=== PATIENT | female | born 1985 | race Caucasian/White ===

== ENCOUNTER 2018-03-17 01:23 | Emergency (ER) | payer MEDICAID ==
[~2018-03-17] VITALS: Ht 144.8 cm; Wt 76.0 kg
[~2018-03-17 01:23] MED LIST: ALBU18HF; BECL8.7A7
[2018-03-17] MEDS ORDERED: IBUPROFEN 800 MG TABLET PO STA (01:55)
[2018-03-17] MEDS ORDERED: SODIUM CHLORIDE FLUSH 10ML SYR IVF ONE (02:00)
[2018-03-17] MEDS ORDERED: ONDANSETRON 2MG/ML, 2ML IVPush ONE (02:00)
[2018-03-17] MEDS ORDERED: ACETAMINOPHEN 500 MG TABLET PO ONE (02:00)
[2018-03-17] MEDS ORDERED: SODIUM CHLORIDE 0.9% 1,000ML IVBOLUS ONE (02:00)
[2018-03-17] MEDS ORDERED: ACETAMINOPHEN 500 MG TABLET ONE (02:02)
[2018-03-17] MEDS ORDERED: ONDANSETRON 2MG/ML, 2ML ONE (02:02)
[2018-03-17] MEDS ORDERED: IBUPROFEN 800 MG TABLET ONE (02:02)
[2018-03-17 02:17] LABS: BASOPHILS # (AUTO) 0.02 x10^3/uL (0-0.1); BASOPHILS % (AUTO) 0 % (0-1); EOSINOPHILS # (AUTO) 0.21 x10^3/uL (0-0.4); EOSINOPHILS % (AUTO) 2 % (1-7); LYMPHOCYTES # (AUTO) 0.94 x10^3/uL (1-3.4); LYMPHOCYTES % (AUTO) 10 % (22-44); MD NO; MEAN CORPUSCULAR HEMOGLOBIN 26.5 pg (27.0-34.8); MEAN CORPUSCULAR HGB CONC 33.7 g/dL (32.4-35.8); MEAN CORPUSCULAR VOLUME 78.6 fL (80-100); MEAN PLATELET VOLUME 8.8 fL (7.4-10.4); MONOCYTES # (AUTO) 0.21 x10^3/uL (0.2-0.8); MONOCYTES % (AUTO) 2 % (2-9); NEUTROPHILS # (AUTO) 7.76 x10^3/uL (1.8-6.8); NEUTROPHILS % (AUTO) 85 % (42-75); PLATELET COUNT 174 x10^3/uL (130-400); RED CELL DISTRIBUTION WIDTH 19.9 % (9.6-15.2)
[2018-03-17 02:29] LABS: ALANINE AMINOTRANSFERASE 35 U/L (12-78); ANION GAP 9 mmol/L (5-15); CALCIUM 8.9 mg/dL (8.5-10.1); CHLORIDE 105 mmol/L (98-107); CREATININE 0.85 mg/dL (0.55-1.02)
[2018-03-17 02:31] LABS: ALKALINE PHOSPHATASE 64 U/L (45-117); BILIRUBIN,TOTAL 0.2 mg/dL (0.2-1.0); TOTAL PROTEIN 7.5 g/dL (6.4-8.2)
[2018-03-17 02:44] LABS: MICROSCOPIC AUTO
[2018-03-17 02:47] LABS: CULTURE INDICATED? YES
[2018-03-17] MEDS ORDERED: LIDOCAINE-MPF 2%, 2ML ONE ×2 (03:40→04:01)
[2018-03-17 04:51] LABS: GLUCOSE, CSF 55 mg/dL (40-80); TOTAL PROTEIN,CSF 32 mg/dL (15-45)
[2018-03-17 05:07] VITALS: BP 96/52
== END 2018-03-17 06:02 | disposition home or self-care (01) ==
LOC: ED 05:56
DX: B34.9 Viral infection, unspecified (principal); R50.81 Fever presenting with conditions classified elsewhere; R51 Headache; R11.0 Nausea; F41.1 Generalized anxiety disorder; J45.909 Unspecified asthma, uncomplicated
CPT/HCPCS: 36415; 62270; 71046; 80053; 81001; 82945; 83605; 84145; 84157; 85025; 87040; 87070; 87086; 87205; 87252; 89051; 93005; 96374; 99285; J2405; J7030

== ENCOUNTER 2018-03-21 13:53 | Emergency (ER) | payer MEDICAID ==
[~2018-03-21] VITALS: Ht 144.8 cm; Wt 75.5 kg
[2018-03-21] MEDS ORDERED: SODIUM CHLORIDE 0.9% 1,000ML IVBOLUS ONE (15:00)
[2018-03-21] MEDS ORDERED: SODIUM CHLORIDE FLUSH 10ML SYR IVF ONE (15:00)
[2018-03-21] MEDS ORDERED: KETOROLAC 30 MG/1 ML IVPush ONE (15:00)
[2018-03-21] MEDS ORDERED: DIHYDROERGOTAMINE 1 MG/ML, 1ML IVPush STA (15:02)
[2018-03-21] MEDS ORDERED: KETOROLAC 30 MG/1 ML ONE (15:16)
[2018-03-21 18:50] VITALS: BP 101/69
== END 2018-03-21 18:52 | disposition home or self-care (01) ==
LOC: ED 18:15
DX: G97.1 Other reaction to spinal and lumbar puncture (principal); J45.909 Unspecified asthma, uncomplicated
CPT/HCPCS: 96374; 96375; 99284; J1110; J1885; J7030